=== PATIENT | male | born 1985 | race Two or more races ===

== ENCOUNTER 2017-03-12 06:12 | Emergency (ER) | payer MEDICAID ==
[~2017-03-12] VITALS: Ht 177.8 cm; Wt 129.3 kg
[2017-03-12] MEDS ORDERED: ATORVASTATIN TAB 10MG (06:46)
[2017-03-12] MEDS ORDERED: VENTOLIN HFA AER (06:46)
[2017-03-12] MEDS ORDERED: [UNRECOGNIZED DRUG - OTHER] (06:46)
[2017-03-12] MEDS ORDERED: [UNRECOGNIZED DRUG - OTHER] (06:46)
[2017-03-12] MEDS ORDERED: LOSARTAN POT (06:46)
[2017-03-12] MEDS ORDERED: LANTUS (06:46)
[2017-03-12] MEDS ORDERED: INSULIN REGULAR, HUMAN 300 UNIT/3 ML VIAL IV ONE (07:15)
[2017-03-12] MEDS ORDERED: IV NORMAL SALINE 1000 ML BAG IV ONE (07:15)
[2017-03-12 07:40] LABS: BASOPHILS # (AUTO) 0.1 K/uL (0.0-8.0); BASOPHILS % (AUTO) 0.7 % (0.0-2.0); EOSINOPHILS # (AUTO) 0.2 K/uL (0.0-0.7); EOSINOPHILS % (AUTO) 3.4 % (0.0-7.0); HEMATOCRIT 47.5 % (36.7-47.1); HEMOGLOBIN 16.3 g/dL (12.5-16.3); LYMPHOCYTES # (AUTO) 2.2 K/uL (20.0-40.0); LYMPHOCYTES % (AUTO) 29.1 % (20.5-51.5); MEAN CORPUSCULAR HEMOGLOBIN 28.3 uug (23.8-33.4); MEAN CORPUSCULAR HGB CONC 34 g/dL (32.5-36.3); MEAN CORPUSCULAR VOLUME 82.7 fL (73.0-96.2); MONOCYTES # (AUTO) 0.6 K/uL (2.0-10.0); NEUTROPHILS # (AUTO) 4.4 K/uL (1.8-8.9); NEUTROPHILS % (AUTO) 58.8 % (38.5-71.5); PLATELET COUNT (AUTO) 177 K/uL (152-348); RED BLOOD CELL COUNT(AUTO) 5.75 MIL/uL (4.06-5.63); WHITE BLOOD COUNT (AUTO) 7.5 K/uL (3.6-10.2)
[2017-03-12] MEDS ORDERED: INSULIN REGULAR, HUMAN 300 UNIT/3 ML VIAL ONE (07:45)
[2017-03-12 08:04] LABS: *BILIRUBIN,URIN NEGATIVE (NEGATIVE); *BLOOD, URINE NEGATIVE (NEGATIVE); *CLARITY,URINE CLEAR (CLEAR); *COLOR,URINE YELLOW (YELLOW); *KETONES,URINE NEGATIVE (NEGATIVE); *PROTEIN,URINE NEGATIVE (NEGATIVE); *UROBILINOGEN,URINE 0.2 E.U./dl (NORMAL); LEUKOCYTE ESTERASE ,URINE NEGATIVE (NEGATIVE); NITRITE, URINE NEGATIVE (NEGATIVE); PH,URINE 5.5 (5.0-8.0)
[2017-03-12 08:07] LABS: UGLUCOSE 2+ (NEGATIVE)
[2017-03-12 08:12] LABS: BACTERIA,URINE NONE SEEN /HPF (NONE SEEN); RBC,URINE NONE SEEN /HPF (0-3); SQUAMOUS EPITHELIAL CELL,UR FEW /HPF (NONE SEEN); WBC,URINE NONE SEEN /HPF (0-3)
[2017-03-12 08:45] LABS: BILIRUBIN,DIRECT 0.1 mg/dL (0.0-0.2); BILIRUBIN,TOTAL 0.5 mg/dL (0.2-1.0); POTASSIUM 4.1 mmol/L (3.5-5.1); TOTAL PROTEIN, SERUM 7.5 g/dL (6.4-8.2)
--- NOTE | 2017-03-12 09:30 | NUR ---
Patient discharged to home in stable conditon. Written and verbal after care instructions given. Patient verbalizes understanding of instructions.pt walks in steady gait, sys feels better and wants to go home. copy of labs given pt will follow up with pmd
== END 2017-03-12 09:50 | disposition home or self-care (01) ==
LOC: ER 06:19
DX: E11.65 Type 2 diabetes mellitus with hyperglycemia (principal); I10 Essential (primary) hypertension; J45.909 Unspecified asthma, uncomplicated; Z79.4 Long term (current) use of insulin
CPT/HCPCS: 36415; 70030-TC; 71045; 83690; 85025; 87086; 93005; A4663; J1815; J7030